=== PATIENT | male | born 1990 | race Caucasian/White ===

== ENCOUNTER 2017-07-15 22:53 | Emergency (ER) | payer OTHER ==
[~2017-07-15] VITALS: Ht 172.7 cm; Wt 68.6 kg
[2017-07-15 23:50] LABS: HEMATOCRIT 45.5 % (38.0-50.0); HEMOGLOBIN 16.4 G/DL (12.5-16.6); MCV 88.7 FL (86-99); PLATELET COUNT 299 K/uL (156-360); RBC DIS.WIDTH-SD 39.1 % (39-53); RED BLOOD COUNT 5.13 M/uL (4.00-5.50); WHITE BLOOD COUNT 7.3 K/uL (4.1-10.2)
[2017-07-16 00:03] LABS: ALBUMIN 4.9 g/dL (3.2-4.8); CHLORIDE 108 mEq/L (99-109); POTASSIUM 4.2 mEq/L (3.7-5.4); SODIUM 143 mEq/L (136-147)
[2017-07-16 00:05] LABS: GLUCOSE 110 mg/dL (70-99); TOTAL PROTEIN 7.9 g/dL (6.4-8.3)
[2017-07-16 00:07] LABS: TOTAL BILIRUBIN 0.4 mg/dL (0.0-1.0)
[2017-07-16 00:08] LABS: SERUM ETHYL ALCOHOL 121 mg/dL
[2017-07-16 00:09] LABS: ALKALINE PHOSPHATASE 137 IU/L (3-129); CREATININE 0.9 mg/dL (0.6-1.3)
[2017-07-16 00:10] LABS: AST (GOT) 25 IU/L (2-34); GFR ESTIMATE (CALCULATED) > 59 mL/min/ (58.99-99999); UREA NITROGEN (BUN) 8 mg/dL (9-23)
[2017-07-16 00:12] LABS: ALT (GPT) 22 IU/L (3-49); LIPASE 55 U/L (1.0-51.0)
[2017-07-16] MEDS ORDERED: TORADOL10 MG PO (02:18)
[2017-07-16] MEDS ORDERED: FLEXERIL10 MG PO (02:18)
[2017-07-16 02:45] VITALS: BP 116/65
== END 2017-07-16 02:46 | disposition home or self-care (01) ==
LOC: EME 22:53
PROVIDERS: Emergency Medicine
DX: S16.1XXA Strain of muscle, fascia and tendon at neck level, initial encounter (principal); S80.01XA Contusion of right knee, initial encounter; V47.5XXA Car driver injured in collision with fixed or stationary object in traffic accident, initial encounter; Y92.410 Unspecified street and highway as the place of occurrence of the external cause; F17.200 Nicotine dependence, unspecified, uncomplicated
CPT/HCPCS: 70450; 71260; 72125; 73564; 80053; 83690; 85027; 99281; 99284; G0480; J2405; J3010; J7030